=== PATIENT | male | born 1985 | race Caucasian/White ===

== ENCOUNTER 2020-09-25 19:39 | Emergency (ER) | payer MEDICAID ==
[~2020-09-25] VITALS: Ht 180.3 cm; Wt 91.0 kg
[2020-09-25 19:41] VITALS: BP 167/101
[2020-09-25] MEDS ORDERED: TETRACAINE 0.5% OPHTH DROPS 4ML LEFTEYE ONE (20:15)
[2020-09-25] MEDS ORDERED: FLUORESCEIN SODIUM 1MG/STRIP LEFTEYE ONE (20:15)
[2020-09-25] MEDS ORDERED: ACETAMINOPHEN WITH CODEINE 300/30MG TABLET PO ONE (20:15)
[2020-09-25] MEDS ORDERED: IBUP-2028 PO (21:32)
[2020-09-25] MEDS ORDERED: OFLO5DRO3 LEFTEYE (21:32)
== END 2020-09-25 21:56 | disposition home or self-care (01) ==
LOC: ER 19:39
DX: S05.02XA Injury of conjunctiva and corneal abrasion without foreign body, left eye, initial encounter (principal); S02.2XXA Fracture of nasal bones, initial encounter for closed fracture; H11.32 Conjunctival hemorrhage, left eye; Y08.89XA Assault by other specified means, initial encounter; Y93.9 Activity, unspecified; Y92.9 Unspecified place or not applicable
CPT/HCPCS: 70486; 99284